=== PATIENT | male | born 1970 | race Caucasian/White ===

== ENCOUNTER 2023-12-06 06:51 | Emergency (ER) | payer MEDICARE ==
[~2023-12-06] VITALS: Ht 182.9 cm; Wt 120.5 kg
[2023-12-06] MEDS ORDERED: PHENYLephrine 500MCG 5ML (100MCG/ML) SYRINGE XX PRN (07:30)
[2023-12-06] MEDS ORDERED: PHENYLEPHRINE XX PRN (07:50)
[2023-12-06] MEDS ORDERED: SODIUM CHLORIDE XX PRN (07:50)
[2023-12-06] MEDS: PHENYLEPHRINE XX PRN (08:30)
[2023-12-06] MEDS: SODIUM CHLORIDE XX PRN (08:30)
[2023-12-06 10:02] VITALS: BP 161/81; TEMP 97.3; O2SAT 98
== END 2023-12-06 10:05 | disposition home or self-care (01) ==
LOC: M ED 06:51
DX: N48.30 Priapism, unspecified (principal); G83.4 Cauda equina syndrome
CPT/HCPCS: 93041; 99284; J2371